=== PATIENT | male | born 1955 | race Caucasian/White ===

== ENCOUNTER 2019-12-01 19:23 | Emergency (ER) | payer MEDICARE, OTHER ==
--- NOTE | 2019-12-01 20:31 | RAD ---
EXAM DESCRIPTION: Chest,2 Views CLINICAL HISTORY: 64 years Male, sob, cough, fever COMPARISON: None TECHNIQUE: Single AP chest radiograph. FINDINGS: Hazy left basilar opacity. The right lung is clear. Cardiomegaly. Cardiac defibrillator lead intact. Intact midline sternotomy wires. No pneumothorax or pleural effusion. IMPRESSION: 1. Left basilar opacity concerning for infection. Electronically signed by: Ben Juan MD 12/01/2019 8:29 PM CDT
--- NOTE | 2019-12-01 20:40 | ED.PDOC ---
History of Present Illness - General Chief Complaint: Respiratory Problem Time Seen by Provider: 12/01/19 19:25 Source: patient Exam Limitations: no limitations - History of Present Illness Comments: PATIENT WITH 2 DAY HISTORY OF COUGH AND SOB, C/O GENERAL MALAISE, NO FEVER THAT HE IS AWARE OF, HE DOES ALSO C/O SORE THROAT, NASAL CONGESTION, DENIES LOSS OF TASTE OF SMELL Associated Symptoms: cough, muscle aches, nasal congestion, shortness of breath, sore throat Allergies/Adverse Reactions: Allergies Azithromycin Allergy (Verified 12/01/19 19:43) Home Medications: Ambulatory Orders Aspirin [Aspirin 81 Low Dose] 81 mg PO DAILY 12/01/19 Carvedilol 12.5 mg PO DAILY 12/01/19 Lisinopril 20 mg PO DAILY 12/01/19 Warfarin Sodium 5 mg PO DAILY 12/01/19 levoFLOXacin [Levaquin] 500 mg PO DAILY #7 tab 12/01/19 Review of Systems - Review of Systems Constitutional: States: see HPI EENTM: States: see HPI Respiratory: States: see HPI Cardiology: States: no symptoms reported Gastrointestinal/Abdominal: States: no symptoms reported Genitourinary: States: no symptoms reported Musculoskeletal: States: see HPI Skin: States: no symptoms reported Neurological: States: no symptoms reported Endocrine: States: no symptoms reported Past Medical History (General) - Patient Medical History Hx Seizures: No Hx Stroke: No Hx Dementia: No Hx Asthma: No Hx of COPD: No Hx Cardiac Disorders: Yes - OR, Quad bipass Hx Congestive Heart Failure: Yes Hx Pacemaker: No Hx Hypertension: Yes Hx Thyroid Disease: No Hx Diabetes: No Hx Gastroesophageal Reflux: No Hx Renal Disease: No Hx Cancer: No Hx of HIV: No Hx Hepatitis C: No Hx MRSA: No Surgical History: coronary bypass surgery, other - Vaccination History Hx Tetanus, Diphtheria Vaccination: No Hx Influenza Vaccination: No Hx Pneumococcal Vaccination: No - Social History Hx Tobacco Use: Yes - Pack a day Hx Chewing Tobacco Use: No Hx Alcohol Use: No Hx Substance Use: No Hx Substance Use Treatment: No Hx Depression: No Feels Threatened In Home Enviroment: No Feels Threatened In a Relationship: No Hx Physical Abuse: No Hx Emotional Abuse: No - Female History Patient is a Female of Child Bearing Age (10 -59 yrs old): No - Triage Comment ED Triage Comment: The patient was alert and oriented times 4 and complained of shortness of breath but did not apper in distress. He denied chest pain, and nausea at the time of assessment, he advised that he was conerned of COVID and wanted to be checked out to make sure he was not coming down with something serious. 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, no motor/sensory deficits, alert, normal mood/affect Skin Exam: normal color, warm/dry, cyanosis Lymphatic: no adenopathy Progress - EKG/XRAY/CT XRAY: chest - Patient Name: SUSIE MOSES Gender: Male Date of : 1955 Referring Physician: Marlo Cooper Organization: [facility] Xray Comments: Patient Name: SUSIE MOSES Gender: Male Departure - Departure Clinical Impression: Pulmonary embolism Qualifiers: Pulmonary embolism type: single subsegmental (without acute cor pulmonale) Qualified Code(s): I26.93 - Single subsegmental pulmonary embolism without acute cor pulmonale Pneumonia Qualifiers: Pneumonia type: due to unspecified organism Laterality: left Lung location: lower lobe of lung Qualified Code(s): J18.9 - Pneumonia, unspecified organism Disposition: Discharge to Home or Self Care Condition: Good Departure Forms: ED Discharge - Pt. Copy, Patient Portal Self Enrollment Prescriptions: levoFLOXacin [Levaquin] 500 mg PO DAILY #7 tab Home Medications: Ambulatory Orders Aspirin [Aspirin 81 Low Dose] 81 mg PO DAILY 12/01/19 Carvedilol 12.5 mg PO DAILY 12/01/19 Lisinopril 20 mg PO DAILY 12/01/19 Warfarin Sodium 5 mg PO DAILY 12/01/19 levoFLOXacin [Levaquin] 500 mg PO DAILY #7 tab 12/01/19 Additional Instructions: PT-INR IS ABOVE RANGE, HOLD COUMADIN FOR 2 DAYS TO ALLOW RETURN TO DESIRED RANGE. RESUME NORMAL DOSE ON WEDNESDAY. CHECK PT-INR ON WEDNESDAY.
--- NOTE | 2019-12-01 21:35 | CT ---
PROCEDURE: CTA Chest CLINICAL HISTORY: 64 years Male SOB, ELEVATED D-DIMER COMPARISON: None. TECHNIQUE: Contiguous axial images obtained through the chest during the infusion of IV contrast. Reformatted images obtained. MIP reformatted images obtained. This exam was performed according to our department optimization program which includes automated exposure control, adjustment of the mA and/or kv according to patient size and/or use of iterative reconstruction technique. FINDINGS: The visualized upper abdominal organs appear unremarkable. Coronary artery calcifications. There is a left cardiac pacemaker device and pacemaker leads visualized. Changes from previous sternotomy. The mediastinum appears unremarkable. No evidence for thoracic aortic dissection. There is decreased density within the pulmonary artery branch to the lingula suspicious for a small amount of pulmonary embolus. No other pulmonary emboli are identified. No evidence for right heart strain. Mild scarring/atelectasis most pronounced at the left lung base. No consolidating infiltrates or pleural effusions. No pneumothorax. IMPRESSION: There is decreased density within a left pulmonary artery branch supplying the lingula suspicious for a small amount of pulmonary embolus. No other pulmonary emboli are identified. No evidence for right heart strain. The findings were called to Dr. Marlo Cooper at 9:31 PM. Electronically signed by: Marcel Cornejo MD 12/01/2019 9:33 PM CDT
[2019-12-01 22:43] VITALS: BP 156/95; O2SAT 96
[2019-12-01] MEDS ORDERED: levoFLOXacin 500 MG TAB PO ONE (22:43)
[2019-12-01 22:54] VITALS: TEMP 98
== END 2019-12-01 22:54 | disposition home or self-care (01) ==
LOC: ER 19:23
DX: I26.93 Single subsegmental thrombotic pulmonary embolism without acute cor pulmonale (principal); J18.9 Pneumonia, unspecified organism; I25.2 Old myocardial infarction; I50.9 Heart failure, unspecified; I11.0 Hypertensive heart disease with heart failure; Z20.828 Contact with and (suspected) exposure to other viral communicable diseases; Z95.1 Presence of aortocoronary bypass graft; Z87.891 Personal history of nicotine dependence; Z79.82 Long term (current) use of aspirin; Z79.899 Other long term (current) drug therapy; Z79.01 Long term (current) use of anticoagulants; Z88.1 Allergy status to other antibiotic agents